=== PATIENT | female | born 1960 | race American Indian/Alaskan Native ===

== ENCOUNTER 2018-06-10 11:33 | Emergency (ER) | payer OTHER ==
[2018-06-10] MEDS ORDERED: MOTRIN PO ONE ×2 (14:45→14:53)
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
[2018-06-10 16:49] VITALS: BP 136/72
== END 2018-06-10 17:14 | disposition home or self-care (01) ==
LOC: ED 11:33
DX: S13.4XXA Sprain of ligaments of cervical spine, initial encounter (principal); I10 Essential (primary) hypertension; V89.2XXA Person injured in unspecified motor-vehicle accident, traffic, initial encounter; Y93.89 Activity, other specified; Y99.8 Other external cause status; Y92.410 Unspecified street and highway as the place of occurrence of the external cause
CPT/HCPCS: 72040; 99283